=== PATIENT | female | born 1955 | race Hispanic/Latino ===

== ENCOUNTER 2020-12-22 13:34 | Emergency (ER) | payer BC ==
[~2020-12-22] VITALS: Ht 160 cm; Wt 99.8 kg
[2020-12-22] MEDS ORDERED: DIPHTH/TETANUS/ACEL. PERTUSSIS 0.5 ML SYR IM ONE (14:15)
[2020-12-22] MEDS ORDERED: ACETAMINOPHEN 325 MG TAB PO ONE (14:15)
[2020-12-22] MEDS ORDERED: BACITRACIN ZINC 0.9GM TP ONE (14:21)
[2020-12-22] MEDS ORDERED: CEPHALEXIN500 MG PO (14:31)
[2020-12-22] MEDS ORDERED: ULTRAM 50MG50 MG PO (14:33)
[2020-12-22] MEDS ORDERED: TETANUS/DIPHTHERIA TOX ADULT 0.5 ML SYR ONE (14:53)
== END 2020-12-22 15:11 | disposition home or self-care (01) ==
LOC: FSED 14:10
DX: S61.201A Unspecified open wound of left index finger without damage to nail, initial encounter (principal); W45.8XXA Other foreign body or object entering through skin, initial encounter; Y92.008 Other place in unspecified non-institutional (private) residence as the place of occurrence of the external cause
CPT/HCPCS: 90471; 90714; 99284